=== PATIENT | male | born 1965 | race Caucasian/White ===

== ENCOUNTER 2024-04-26 09:21 | Emergency (ER) | payer MEDICAID ==
[~2024-04-26] VITALS: Ht 167.6 cm; Wt 63.0 kg
[2024-04-26 09:22] VITALS: BP 173/97; PULSE 83; RESP 20; TEMP 97.7; O2SAT 98
[2024-04-26 11:13] LABS: BASOPHILS % 0.3 % (0.0-2.0); EOSINOPHILS % 0.3 % (0.0-5.0); HEMATOCRIT. 47.3 % (42.0-52.0); HEMOGLOBIN. 15.7 g/dL (14.0-18.0); LYMPHOCYTES % 13.4 % (20.0-50.0); MEAN CORPUSCULAR HEMOGLOBIN 32.9 pg (28.0-32.0); MEAN CORPUSCULAR HGB CONC 33.2 g/dL (31.0-37.0); MEAN CORPUSCULAR VOLUME 99.1 fL (80.0-94.0); MEAN PLATELET VOLUME 8.1 fl (7.4-10.4); MONOCYTES % 7.2 % (2.0-8.0); NEUTROPHILS % 78.8 % (40.0-76.0); PLATELET 229 x1000/uL (130-400); RED BLOOD CELL COUNT 4.77 mill/uL (4.7-6.1); RED CELL DISTRIBUTION WIDTH 13.3 % (11.6-14.6); WHITE BLOOD COUNT 10.9 x1000/uL (4.5-11.0)
[2024-04-26 11:24] LABS: CHLORIDE 105 mEq/L (98-107); POTASSIUM 4.2 mEq/L (3.5-5.1); SODIUM 137 mEq/L (136-145)
[2024-04-26 11:25] LABS: CALCIUM 9.9 mg/dL (8.7-10.4); CARBON DIOXIDE 28 mEq/L (21-32)
[2024-04-26] MEDS: ACETAMINOPHEN 325MG TABLET PO STA (11:26)
[2024-04-26 11:30] LABS: CREATININE 0.8 mg/dL (0.6-1.3); GLUCOSE 203 mg/dL (70-105); UREA NITROGEN BLOOD 11 mg/dL (9-23)
[2024-04-26 11:41] LABS: CLARITY URINE CLOUDY (CLEAR); COLOR URINE DARK YELLOW (YELLOW); GLUCOSE URINE 3+ (NEGATIVE); KETONES URINE 1+ (NEGATIVE); LEUKOCYTE ESTERASE URINE TRACE (NEGATIVE); NITRITE URINE NEGATIVE (NEGATIVE); OCCULT BLOOD URINE 3+ (NEGATIVE); PROTEIN URINE 1+ (NEGATIVE); SPECIFIC GRAVITY URINE 1.032 (1.005-1.030)
[2024-04-26] MEDS ORDERED: ZOLP5TAB2 MT (12:52)
[2024-04-26 12:55] LABS: RBC URINE TNTC /hpf (0-2)
[2024-04-26 12:56] LABS: BACTERIA URINE 3+; SQUAMOUS EPITHELIAL CELL URINE 1+ /lpf (RARE/1+); YEAST URINE NONE SEEN
[2024-04-26 13:27] LABS: TROPONIN I HIGH SENSITIVITY < 4 ng/L (3.0-53)
[2024-04-26] MEDS: SODIUM CHLORIDE 0.9% 1,000 ML IV ONE (16:26)
[2024-04-26] MEDS: MORPHINE SULFATE 4 MG/ML INJ (FOR IV/IM USE) IV ONE (16:39)
[2024-04-26] MEDS: ONDANSETRON HCL 4MG/2ML INJ IV ONE (16:40)
[2024-04-26] MEDS: CEFTRIAXONE 1GM/50ML 50 ML IV ONE (16:40)
[2024-04-26] MEDS ORDERED: TAMS-11 PO (17:21)
[2024-04-26] MEDS ORDERED: CEPH500C2 MT (17:21)
== END 2024-04-26 17:36 | disposition home or self-care (01) ==
LOC: ER 09:21
DX: N20.0 Calculus of kidney (principal); E11.9 Type 2 diabetes mellitus without complications
CPT/HCPCS: 99285; 74176; 96365; 96375; 71045; 80048; 81003; 85025; 87086; 84484; 36415; 93005; J0696; J2405; J2270; J7030

== ENCOUNTER 2025-04-26 18:50 | Emergency (ER) | payer MEDICAID ==
[~2025-04-26] VITALS: Ht 167.6 cm; Wt 70.0 kg
[~2025-04-26 18:50] MED LIST: CEPH500C2 MT; TAMS-54 PO
[2025-04-26 19:03] VITALS: TEMP 36.8; O2SAT 98
[2025-04-26 19:20] LABS: CLARITY URINE CLOUDY (CLEAR); COLOR URINE DARK YELLOW (YELLOW); GLUCOSE URINE TRACE (NEGATIVE); KETONES URINE TRACE (NEGATIVE); LEUKOCYTE ESTERASE URINE TRACE (NEGATIVE); NITRITE URINE NEGATIVE (NEGATIVE); OCCULT BLOOD URINE 3+ (NEGATIVE); PH URINE 5.0 (4.5-8.0); PROTEIN URINE 1+ (NEGATIVE); SPECIFIC GRAVITY URINE 1.035 (1.005-1.030); UROBILINOGEN URINE 1.0 E.U./dL (0.2-1.0)
[2025-04-26 19:48] LABS: BACTERIA URINE TRACE; RBC URINE 50-100 /hpf (0-2); SQUAMOUS EPITHELIAL CELL URINE FEW /lpf (RARE/1+)
[2025-04-26 19:49] LABS: CALCIUM OXALATE CRYSTALS URINE 1+ /lpf; MUCUS URINE TRACE /lpf (NONE/TRACE)
[2025-04-26 21:33] LABS: BASOPHILS % 0.5 % (0.0-2.0); EOSINOPHILS % 3.3 % (0.0-5.0); HEMATOCRIT. 44.4 % (42.0-52.0); HEMOGLOBIN. 15.1 g/dL (14.0-18.0); LYMPHOCYTES % 25.7 % (20.0-50.0); MEAN PLATELET VOLUME 8.3 fl (7.4-10.4); MONOCYTES % 8.5 % (2.0-8.0); NEUTROPHILS % 62.0 % (40.0-76.0); PLATELET 237 x1000/uL (130-400); RED BLOOD CELL COUNT 4.54 mill/uL (4.7-6.1); RED CELL DISTRIBUTION WIDTH 13.7 % (11.6-14.6)
[2025-04-26] MEDS: KETOROLAC 15MG/ML VIAL IM ONE (21:36)
[2025-04-26 21:47] LABS: CREATININE 0.9 mg/dL (0.6-1.3); UREA NITROGEN BLOOD 14 mg/dL (9-23)
[2025-04-26 21:49] LABS: ASPARTATE AMINOTRANSFERASE 20 IU/L (<34); BILIRUBIN DIRECT 0.3 mg/dL (<=3.0)
[2025-04-26 21:50] LABS: BILIRUBIN TOTAL 0.8 mg/dL (0.1-1.0); PROTEIN TOTAL 7.2 g/dL (6.0-8.3)
[2025-04-26] MEDS ORDERED: T3 PO (22:33)
[2025-04-26] MEDS ORDERED: TAMS-54 MT (22:33)
[2025-04-26] MEDS ORDERED: IBUP-2029 MT (22:33)
[2025-04-26] MEDS: TAMSULOSIN HCL 0.4MG SR CAPSULE PO ONE (22:46)
[2025-04-26 22:47] VITALS: BP 147/87; PULSE 72; RESP 14; O2SAT 100
== END 2025-04-26 22:49 | disposition home or self-care (01) ==
LOC: ER 18:50
DX: N20.1 Calculus of ureter (principal); E11.9 Type 2 diabetes mellitus without complications; I10 Essential (primary) hypertension; Z79.899 Other long term (current) drug therapy; Z98.890 Other specified postprocedural states; Z87.442 Personal history of urinary calculi
CPT/HCPCS: 80076; 80048; 81003; 85025; 87086; 36415; 74176; 96372; 99285; J1885; Z7610

== ENCOUNTER 2025-05-30 20:09 | Emergency (ER) | payer MEDICAID ==
[~2025-05-30] VITALS: Ht 162.6 cm; Wt 64.0 kg
[~2025-05-30 20:09] MED LIST changes: +IBUP-1455 MT; +T3 PO; +TAMS-54 MT
[2025-05-30 20:21] VITALS: O2SAT 98
[2025-05-30 21:00] LABS: CLARITY URINE TURBID (CLEAR); COLOR URINE ORANGE (YELLOW); GLUCOSE URINE 2+ (NEGATIVE); KETONES URINE TRACE (NEGATIVE); LEUKOCYTE ESTERASE URINE 3+ (NEGATIVE); NITRITE URINE POSITIVE (NEGATIVE); OCCULT BLOOD URINE 3+ (NEGATIVE); PH URINE 6.0 (4.5-8.0); PROTEIN URINE 4+ (NEGATIVE); SPECIFIC GRAVITY URINE 1.032 (1.005-1.030); UROBILINOGEN URINE 1.0 E.U./dL (0.2-1.0)
[2025-05-30 21:08] LABS: RBC URINE 50-100 /hpf (0-2); SQUAMOUS EPITHELIAL CELL URINE NONE SEEN /lpf (RARE/1+); WBC URINE 50-100 /hpf (0-2)
[2025-05-30 21:09] LABS: BACTERIA URINE 3+
[2025-05-30 21:24] LABS: BASOPHILS % 0.8 % (0.0-2.0); EOSINOPHILS % 1.9 % (0.0-5.0); HEMATOCRIT. 44.3 % (42.0-52.0); HEMOGLOBIN. 15.3 g/dL (14.0-18.0); LYMPHOCYTES % 13.6 % (20.0-50.0); MEAN PLATELET VOLUME 8.0 fl (7.4-10.4); MONOCYTES % 9.6 % (2.0-8.0); NEUTROPHILS % 74.1 % (40.0-76.0); PLATELET 211 x1000/uL (130-400); RED BLOOD CELL COUNT 4.68 mill/uL (4.7-6.1); RED CELL DISTRIBUTION WIDTH 13.2 % (11.6-14.6)
[2025-05-30 21:38] LABS: CREATININE 1.1 mg/dL (0.6-1.3); UREA NITROGEN BLOOD 12 mg/dL (9-23)
[2025-05-30] MEDS: ONDANSETRON 4MG ODT PO ONE (21:43)
[2025-05-30] MEDS: KETOROLAC 15MG/ML VIAL IM ONE (21:44)
[2025-05-30] MEDS: CEFTRIAXONE 1GM/50ML 50 ML IV ONE (22:20)
[2025-05-30] MEDS: SODIUM CHLORIDE 0.9% 500 ML IV ONE (22:22)
[2025-05-30] MEDS ORDERED: SULF1TAB48 MT (22:43)
[2025-05-30 23:34] VITALS: BP 137/77; PULSE 90; RESP 18; TEMP 36.8; O2SAT 100
== END 2025-05-30 23:39 | disposition home or self-care (01) ==
LOC: ER 20:09
DX: N13.6 Pyonephrosis (principal); E11.65 Type 2 diabetes mellitus with hyperglycemia; Q63.1 Lobulated, fused and horseshoe kidney; Z79.899 Other long term (current) drug therapy
CPT/HCPCS: 99285; 74176; 96365; 96361; 80048; 81003; 85025; 87086; 87186; 87077; 36415; 96372; J1885; Q0162; J0696; J7030